=== PATIENT | female | born 1955 | race Caucasian/White ===

== ENCOUNTER 2016-12-26 00:34 | Emergency (ER) | payer MEDICAID ==
[~2016-12-26] VITALS: Ht 160 cm; Wt 81.2 kg
[2016-12-26] MEDS ORDERED: HYDROCHLOROTHIA25 M1 PO (01:05)
[2016-12-26] MEDS ORDERED: LEVOTHYROXINE0.1 MG PO (01:05)
[2016-12-26] MEDS ORDERED: LOSARTAN POTASS50 MG PO (01:06)
[2016-12-26] MEDS ORDERED: DICLOFENAC 50MG50 MG PO (01:06)
[2016-12-26 01:08] LABS: URINE BLOOD NEGATIVE (NEG)
[2016-12-26 01:09] LABS: URINE BILIRUBIN - DIPSTICK NEGATIVE (NEG)
--- NOTE | 2016-12-26 01:10 | Emergency Room Report ---
History of Present Illness Time Seen by MD Burton Presenting Problem in Triage Pt arrived:Walked Presenting Problem:PT C/O NAUSEA BUT DENIES VOMITING SINCE SATURDAY. 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 N Clinical Suspician of Infection? N Mental Status: 1 - Regular (Normal Baseline) Sepsis Risk:Low Sepsis Risk Have you (or family members/close friends) recently traveled outside the [place]? N If Yes, where/when: Have you had exposure to infectious disease within the past month? N TB? Other? Specify: Source patient, RN notes reviewed, family, old records Exam Limitations no limitations Comment pt with rumper cough over the last few days with no fever or rash but has nausea - Cardiac Chest Pain Chest pain indicative of cardiac No Timing/Duration this evening Severity moderate ALLERGIES Coded Allergies: Penicillins (Mild, 12/26/16) Home Medications Reported Medications HYDROCHLOROTHIAZIDE (Hydrochlorothiazide) 25 MG PO DAILY LEVOTHYROXINE SOD (Synthroid) 0.1 MG PO DAILY DICLOFENAC SODIUM (Diclofenac 50MG) 75 MG PO DAILY Losartan Potassium (Losartan 50MG) 50 MG PO DAILY History Medical History General CAD? No Angina: No [place]: No Hypertension? Yes Hyperlipidemia? No CHF? No DVT? No PE? No COPD? No Asthma? No Anemia? No GERD? No Gastric ulcers? No GI Bleed? No Hernia? No Thyroid Problems? Yes Hypothyroidism? No CVA? No Seizures? No Diabetes? No Renal Insuffiency? No End Stage Renal Disease? No UTI? No Stones? No BPH? No GB Disease: No Nephritic Syndrome? No Asplenia? No Hepatitis? No Sickle Cell Disease? No Arthritis? No Migraines? No Cataracts? No Glaucoma? No MRSA? No HIV? No TB? No Anxiety? No Depression? No Cancer? 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 Respiratory cough, denies shortness of breath, denies wheezing Cardiovascular denies chest pain, denies palpitations, denies syncope Gastrointestinal denies abdominal pain, denies diarrhea, denies vomiting Genitourinary denies: dysuria, frequency, hesitancy, hematuria. Musculoskeletal denies back pain, denies joint pain, denies joint swelling, denies neck pain Skin denies rash Psychiatric/Neurological denies headache, denies seizure Physical Exam Vital Signs Vital Signs Date Time Temp Pulse Resp B/P Pulse O2 O2 Flow FiO2 Ox Delivery Rate 12/26 0052 98.7 90 18 126/72 95 - WBC >12,000 or <4,000 or 10% bands? 2 or more SIRS Criteria Met? B/P:126/72 MAP:90 Creatinine >2.0? UA output<0.5ml/kg/hr for 2 hrs? Platelet count >100,000? Lactate >2.0mmol/1? INR >1.2 or PTT > than 60 sec? Evidence of Organ Dysfunction? Provider documented clinical suspician of infection? N Sepsis Criteria Count: 0 Sepsis Risk: Low Sepsis Risk General Appearance no apparent distress Eye Exam - bilateral eye PERRL, bilateral eye EOMI Ear, Nose, Throat normal ENT inspection Neck supple Respiratory Status No: respiratory distress. Lung Sounds bilateral: rhonchi. 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 No Results/Orders Laboratory Tests 12/26/16 0120: Sodium 136, Potassium 3.0 L, Chloride 99, Carbon Dioxide 28, BUN 18, Creatinine 0.8, Estimated Creat Clear 97, Estimated GFR (MDRD) 73, Glucose 140 H, Calcium 8.2 L, Total Bilirubin 0.5, AST 41 H, ALT 68, Alkaline Phosphatase 87, Creatine Kinase 244 H, CK-MB (CK-2) Rel Index 0.2, CK and CKMB Interp 0.6, Troponin I < 0.02, Total Protein 6.8, Albumin 3.4, Globulin 3.4 H, Albumin/ Globulin Ratio 1.0 L, WBC 5.9, RBC 4.40, Hgb 14.0, Hct 38.3, MCV 87.2, RDW 12.7 , Plt Count 149, MPV 6.5 L, Gran % 73.9, Gran # 4.4, Lymphocytes % 19.5, Monocytes % 5.8, Eosinophils % 0.7, Basophils % 0.2, Lymphocytes # 1.2, Monocytes # 0.3, Eosinophils # 0.0, Basophils # 0.0, PUBS MCHC 36.4 H, MCH 31.7 H 12/26/16 0055: Influenza Type A Ag NOT DETECTED, Influenza Type B Ag NOT DETECTED, Urine Color DK YELLOW, Urine Appearance CLEAR, Urine pH 6.0, Ur Specific [place] >= 1.030, Urine Protein TRACE H, Urine Ketones 1+ H, Urine Blood NEGATIVE, Urine Nitrate NEGATIVE, Urine Bilirubin NEGATIVE, Urine Urobilinogen 0.2, Ur Leukocyte Esterase NEGATIVE, Urine WBC 3-5, Ur Squamous Epith Cells OCC, Urine Bacteria 1+ , Urine Mucus 1+, Urine Glucose NEGATIVE Current Medication Orders Sig/Chata Start time Last Medication Dose Route Stop Time Status Admin Famotidine 0 .STK-MED ONE 12/26 206 DC IV Levofloxacin/Dextrose 100 ML .STK-MED ONE 12/26 206 DC IV Methylprednisolone 0 .STK-MED ONE 12/26 206 DC Sodium Succinate .ROUTE Benzonatate 0 .STK-MED ONE 12/26 205 DC PO Benzonatate 100 MG ONCE ONE 12/26 199 DC 12/26 PO 12/26 200 0212 Famotidine 20 MG ONCE ONE 12/26 199 DC 12/26 IV 12/26 200 0212 Levofloxacin/Dextrose 100 ML ONCE ONE 12/26 020 r 12/26 IV 12/26 025 0213 Methylprednisolone 125 MG ONCE ONE 12/26 199 DC 12/26 Sodium Succinate IV 12/26 200 0212 Sodium Chloride 8 ML ONCE ONE 12/26 199 DC IV 12/26 200 Sodium Chloride 10 ML PRN PRN 12/26 010 AC IV 12/27 0046 Orders Procedure Date/time Status URINALYSIS/COMPLETE 12/26 50 Complete ELECTROCARDIOGRAM REQUEST 12/26 46 Active IV SALINE LOCK 12/26 46 Active INFLUENZA A&B ANTIGENS 12/26 46 Complete COMPLETE METABOLIC PANEL 12/26 46 Complete CBC WITH AUTO DIFF 12/26 46 Complete CARDIAC ENZYMES 12/26 46 Complete CHEST(2 VIEWS-NOT PORTABLE) 12/26 44 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 ST/Twave chgs XRAY/CT/US XRAY/CT/US XRAY chest XR interpretation by reviewed by me Xray Results normal/NAD Departure Departure Time of Disposition 215 Disposition DC Home or Self Care(routine) Clinical Impression Primary Impression: Bronchitis Secondary Impressions: Bronchospasm with bronchitis, acute Condition STABLE Referrals ZANDER JORDAN APRN (Family) Patient Instructions DI for Cough -- Adult Additional Instructions use meds and see pcp for follow up Discharge Counseling Counseled pt/family regarding diagnosis, test results, medications/RX, follow up needs Prescriptions Current Visit Scripts Prednisone (Prednisone 20MG) 20 MG PO BID #10 TAB BENZONATATE (Benzonatate) 100 MG PO TID #15 CAP Azithromycin (Zithromycin (Z-HA) 250MG Tab) 250 MG PO DAILY #6 TAB TAKE TWO (2) TABLETS ON DAY 1, THEN ONE (1) TABLET DAY #2 THRU #5 ED Critical Care Critical Care No at 0218
--- NOTE | 2016-12-26 01:10 | Emergency Room Report ---
History of Present Illness Time Seen by MD Burton Presenting Problem in Triage Pt arrived:Walked Presenting Problem:PT C/O NAUSEA BUT DENIES VOMITING SINCE SATURDAY. 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 N Clinical Suspician of Infection? N Mental Status: 1 - Regular (Normal Baseline) Sepsis Risk:Low Sepsis Risk Have you (or family members/close friends) recently traveled outside the [place]? N If Yes, where/when: Have you had exposure to infectious disease within the past month? N TB? Other? 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 No Angina: No [place]: No Hypertension? Yes Hyperlipidemia? No CHF? No DVT? No PE? No COPD? No Asthma? No Anemia? No GERD? No Gastric ulcers? No GI Bleed? No Hernia? No Thyroid Problems? Yes Hypothyroidism? No CVA? No Seizures? No Diabetes? No Renal Insuffiency? No End Stage Renal Disease? No UTI? No Stones? No BPH? No GB Disease: No Nephritic Syndrome? No Asplenia? No Hepatitis? No Sickle Cell Disease? No Arthritis? No Migraines? No Cataracts? No Glaucoma? No MRSA? No HIV? No TB? No Anxiety? No Depression? No Cancer? 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 Respiratory cough, denies shortness of breath, denies wheezing Cardiovascular denies chest pain, denies palpitations, denies syncope Gastrointestinal denies abdominal pain, denies diarrhea, denies vomiting Genitourinary denies: dysuria, frequency, hesitancy, hematuria. Musculoskeletal denies back pain, denies joint pain, denies joint swelling, denies neck pain Skin denies rash Psychiatric/Neurological denies headache, denies seizure Physical Exam Vital Signs Vital Signs Date Time Temp Pulse Resp B/P Pulse O2 O2 Flow FiO2 Ox Delivery Rate 12/26 0052 98.7 90 18 126/72 95 - WBC >12,000 or <4,000 or 10% bands? 2 or more SIRS Criteria Met? B/P:126/72 MAP:90 Creatinine >2.0? UA output<0.5ml/kg/hr for 2 hrs? Platelet count >100,000? Lactate >2.0mmol/1? INR >1.2 or PTT > than 60 sec? Evidence of Organ Dysfunction? Provider documented clinical suspician of infection? N Sepsis Criteria Count: 0 Sepsis Risk: Low Sepsis Risk General Appearance no apparent distress Eye Exam - bilateral eye PERRL, bilateral eye EOMI Ear, Nose, Throat normal ENT inspection Neck supple Respiratory Status No: respiratory distress. Lung Sounds bilateral: rhonchi. 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 No Results/Orders Laboratory Tests 12/26/16 0120: Sodium 136, Potassium 3.0 L, Chloride 99, Carbon Dioxide 28, BUN 18, Creatinine 0.8, Estimated Creat Clear 97, Estimated GFR (MDRD) 73, Glucose 140 H, Calcium 8.2 L, Total Bilirubin 0.5, AST 41 H, ALT 68, Alkaline Phosphatase 87, Creatine Kinase 244 H, CK-MB (CK-2) Rel Index 0.2, CK and CKMB Interp 0.6, Troponin I < 0.02, Total Protein 6.8, Albumin 3.4, Globulin 3.4 H, Albumin/ Globulin Ratio 1.0 L, WBC 5.9, RBC 4.40, Hgb 14.0, Hct 38.3, MCV 87.2, RDW 12.7 , Plt Count 149, MPV 6.5 L, Gran % 73.9, Gran # 4.4, Lymphocytes % 19.5, Monocytes % 5.8, Eosinophils % 0.7, Basophils % 0.2, Lymphocytes # 1.2, Monocytes # 0.3, Eosinophils # 0.0, Basophils # 0.0, PUBS MCHC 36.4 H, MCH 31.7 H 12/26/16 0055: Influenza Type A Ag NOT DETECTED, Influenza Type B Ag NOT DETECTED, Urine Color DK YELLOW, Urine Appearance CLEAR, Urine pH 6.0, Ur Specific [place] >= 1.030, Urine Protein TRACE H, Urine Ketones 1+ H, Urine Blood NEGATIVE, Urine Nitrate NEGATIVE, Urine Bilirubin NEGATIVE, Urine Urobilinogen 0.2, Ur Leukocyte Esterase NEGATIVE, Urine WBC 3-5, Ur Squamous Epith Cells OCC, Urine Bacteria 1+ , Urine Mucus 1+, Urine Glucose NEGATIVE Current Medication Orders Sig/Chata Start time Last Medication Dose Route Stop Time Status Admin Famotidine 0 .STK-MED ONE 12/26 206 DC IV Levofloxacin/Dextrose 100 ML .STK-MED ONE 12/26 206 DC IV Methylprednisolone 0 .STK-MED ONE 12/26 206 DC Sodium Succinate .ROUTE Benzonatate 0 .STK-MED ONE 12/26 205 DC PO Benzonatate 100 MG ONCE ONE 12/26 199 DC 12/26 PO 12/26 200 0212 Famotidine 20 MG ONCE ONE 12/26 199 DC 12/26 IV 12/26 200 0212 Levofloxacin/Dextrose 100 ML ONCE ONE 12/26 020 r 12/26 IV 12/26 025 0213 Methylprednisolone 125 MG ONCE ONE 12/26 199 DC 12/26 Sodium Succinate IV 12/26 200 0212 Sodium Chloride 8 ML ONCE ONE 12/26 199 DC IV 12/26 200 Sodium Chloride 10 ML PRN PRN 12/26 010 AC IV 12/27 0046 Orders Procedure Date/time Status URINALYSIS/COMPLETE 12/26 50 Complete ELECTROCARDIOGRAM REQUEST 12/26 46 Active IV SALINE LOCK 12/26 46 Active INFLUENZA A&B ANTIGENS 12/26 46 Complete COMPLETE METABOLIC PANEL 12/26 46 Complete CBC WITH AUTO DIFF 12/26 46 Complete CARDIAC ENZYMES 12/26 46 Complete CHEST(2 VIEWS-NOT PORTABLE) 12/26 44 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 ST/Twave chgs XRAY/CT/US XRAY/CT/US XRAY chest XR interpretation by reviewed by me Xray Results normal/NAD Departure Departure Time of Disposition 215 Disposition DC Home or Self Care(routine) Clinical Impression Primary Impression: Bronchitis Secondary Impressions: Bronchospasm with bronchitis, acute Condition STABLE Referrals ZANDER JORDAN APRN (Family) Patient Instructions DI for Cough -- Adult Additional Instructions use meds and see pcp for follow up Discharge Counseling Counseled pt/family regarding diagnosis, test results, medications/RX, follow up needs Prescriptions Current Visit Scripts Prednisone (Prednisone 20MG) 20 MG PO BID #10 TAB BENZONATATE (Benzonatate) 100 MG PO TID #15 CAP Azithromycin (Zithromycin (Z-HA) 250MG Tab) 250 MG PO DAILY #6 TAB TAKE TWO (2) TABLETS ON DAY 1, THEN ONE (1) TABLET DAY #2 THRU #5 ED Critical Care Critical Care No at 0218
[2016-12-26 01:13] LABS: URINE SQUAMOUS CELLS OCC #/hpf (0-5)
[2016-12-26 01:32] LABS: LYMPH # 1.2 K/mm3 (0.7-4.5); LYMPH % 19.5 % (10-50.0)
[2016-12-26 01:58] LABS: BUN 18 mg/dL (7-18); GFR (ESTIMATED) 73 ML/MIN (59-)
[2016-12-26] MEDS ORDERED: ZITHROMAX Z PA250 MG PO (02:18)
[2016-12-26] MEDS ORDERED: TESSALON PERLE100 MG PO (02:18)
[2016-12-26] MEDS ORDERED: PREDNISONE 20MG20 MG PO (02:18)
[2016-12-26 02:57] VITALS: BP 135/84
--- NOTE | 2016-12-26 08:04 | RADIOLOGY REPORT PS360 ---
CHEST(2 VIEWS-NOT PORTABLE) HISTORY: cough ORDERING PHYSICIAN: Francine Loyola MD PATIENT AGE: 61 years COMPARISON: None available FINDINGS: The cardiomediastinal silhouette and pulmonary vascularity are within normal limits. No lobar consolidation or collapse is evident. There is coarsening of the bronchovascular markings nonspecific and may be seen with chronic peribronchial inflammatory change. Patchy infiltrate suspected in the right perihilar region Surgical clips right axilla. No acute bony anomalies. IMPRESSION: Coarsening of the bronchovascular markings suggesting peribronchial inflammatory change with patchy infiltrate in the right perihilar region..
== END 2016-12-26 02:59 | disposition home or self-care (01) ==
LOC: ER 00:34
PROVIDERS: Emergency Medicine
DX: J20.9 Acute bronchitis, unspecified (principal); I10 Essential (primary) hypertension

== ENCOUNTER → 2017-08-30 | Outpatient (CLI) | payer BC, MEDICAID ==
[~2017-08-30] MED LIST: DICLOFENAC 50MG50 MG PO; HYDROCHLOROTHIA25 M1 PO; LEVOTHYROXINE0.1 MG PO; LOSARTAN POTASS50 MG PO; PREDNISONE 20MG20 MG PO; TESSALON PERLE100 MG PO; ZITHROMAX Z PA250 MG PO
[2017-08-31 08:41] LABS: Thyroid Peroxidase (TPO) Ab 15 IU/mL (0-34)
[2017-09-02 12:37] LABS: Thyroglobulin Antibody <1.0 IU/mL (0.0-0.9)
== END ==
LOC: LAB 09:09
PROVIDERS: Otolaryngology
DX: E03.9 Hypothyroidism, unspecified (principal)